=== PATIENT | female | born 1970 | race Caucasian/White ===

== ENCOUNTER 2016-06-16 15:20 | Inpatient (IN) | payer OTHER ==
[~2016-06-16] VITALS: Ht 162.6 cm; Wt 78.6 kg
[~2016-06-16 15:20] MED LIST: AMOXICILLIN500 MG OR; AMOXICILLIN500 MG PO; AZO STANDARD PO; CIPRO500 MG PO; CIPROFLOXACN500 MG PO; DIFLUCAN100 MG PO; FIORICET PO; IMITREX50 M1 PO; LEVSIN/SL0.125 MG PO; METO25TAB PO; METRONIDAZOL500 MG PO; MINIVELLE0.025 MG/2 TD; MINIVELLE0.05 MG; MINIVELLE0.05 MG EX; MOTRIN200 MG PO; NAPROSYN500 MG OR; NEOSPORIN AD; NORCO1 TA1 PO; NORTRIPTYLIN25 MG PO; PAMELOR25 MG PO; PREDNISONE10 MG PO; PYRIDIUM200 MG PO; SYNTHROID PO; TOPROL XL25 M1 PO; TRAMADOL HCL50 MG OR; ULTRAM50 M1 PO
--- NOTE | 2016-06-16 15:30 | NUR ---
DIRECT ADMIT, AMBULATED TO ROOM 278 WITH STEADY GAIT ACCOMPANIED BY FAMILY MEMBER. ORIENTED TO ROOM AND CALL SYSTEM. SAFETY PRECAUTIONS REINFORCED. BED IN LOWEST POSITION WITH WHEELS LOCKED. CALL LIGHT WITHIN REACH. ENCOURAGED PT AND FAMILY MEMBERS TO CALL FOR ANY NEEDS.
[2016-06-16 15:32] VITALS: BP 129/90
--- NOTE | 2016-06-16 15:50 | NUR ---
TO CT SCAN IN STABLE CONDITION VIA WHEELCHAIR ACCOMPANIED BY CRYSTAL ROULETTE DEALER.
[2016-06-16 15:58] LABS: HEMATOCRIT 43.7 % (37.0-47.0); HEMOGLOBIN 14.4 g/dl (12.0-16.0); MEAN CELL VOLUME 91.6 fL CALC (80.0-100.0); MEAN CORPUSCULAR HGB 30.2 pG CALC (26.0-32.0); RED BLOOD COUNT 4.77 mill/uL (4.20-5.60); RED CELL DISTRI WIDTH 12.3 % (11.5-15.5)
--- NOTE | 2016-06-16 16:15 | NUR ---
FROM CT SCAN VIA WHEELCHAIR ACCOMPANIED BY LIZETH PENA. AMBULATED TO BED WITH STEADY GAIT. FAMILY AT BEDSIDE. CALL LIGHT WITHIN REACH.
[2016-06-16 16:26] LABS: ALBUMIN 4.3 g/dL (3.2-5.0); ALKALINE PHOSPHATASE 87 u/l (38-126); ANION GAP 15 (6-22 (CALC)); BILIRUBIN, TOTAL 0.9 mg/dL (0.0-1.4); BUN 8 mg/dL (7-17); BUN/CREATININE RATIO 11 (12-20 (CALC)); CALCIUM 9.4 mg/dL (8.4-10.2); CARBON DIOXIDE 27 mmol/l (22-30); CHLORIDE 101 mmol/l (95-108); CREATININE 0.7 mg/dL (0.5-1.0); GFR > 60 ML/MIN (>=60 (CALC)); GFR FOR AFR.AMER. > 60 ML/MIN (>=60 (CALC)); GLUCOSE 88 mg/dL (65-105); LIPASE 65 u/l (23-300); POTASSIUM 3.9 mmol/l (3.5-5.1); SGOT/AST 21 u/l (14-36); SGPT/ALT 34 u/l (9-52); SODIUM 140 mmol/l (137-146); TOTAL PROTEIN 7.6 g/dL (6.3-8.2)
--- NOTE | 2016-06-16 17:47 | NUR ---
DR HENAO IN TO SEE PT, NEW ORDERS RECEIVED.
--- NOTE | 2016-06-16 18:21 | NUR ---
TO RADIOLOGY IN STABLE CONDITION VIA WHEELCHAIR ACCOMPANIED BY SHERIF PENA.
[2016-06-16 18:45] VITALS: BP 144/90
--- NOTE | 2016-06-16 19:46 | NUR ---
BEDSIDE REPORT RECEIVED FROM KASSANDRA BAR. PT SITTING UP IN CHAIR AT BEDSIDE. DENIES PAIN CURRENTLY. RESPIRATIONS EVEN AND SHALLOW WITH OXYGEN IN PLACE AT 2L. PLAN OF CARE DISCUSSED. PT ENCOURAGED TO VERBALIZE CONCERNS. STATES UNDERSTANDING. ASSESSMENT COMPLETED. IV SITE APPEARS HEALTHY AND FLUSHES. SAFETY MEASURES IN PLACE. CALL LIGHT SYSTEM REVIEWED AND IN REACH.
--- NOTE | 2016-06-16 19:53 | NUR ---
BEDSIDE REPORT RECEIVED FROM KASSANDRA BAR. PT RESTING IN BED WATCHING TV. DENIES PAIN AT THIS TIME. RESPIRATIONS EVEN AND UNLABAORED. PLAN OF CARE DISCUSSED. PT ENCOURAGED TO VERBALIZE CONCERNS. STATES UNDERSTANDING. SAFETY MEASURES IN PLACE. FAMILY AT BEDSIDE. CALL LIGHT SYSTEM REVIEWED AND IN REACH.
[2016-06-16 19:59] LABS: URINE BILIRUBIN - DIPSTICK NEGATIVE (NEGATIVE); URINE BLOOD DIPSTICK NEGATIVE (NEGATIVE); URINE CLARITY CLEAR; URINE COLOR YELLOW; URINE GLUCOSE - DIPSTICK NEGATIVE (NEGATIVE); URINE KETONE NEGATIVE (NEGATIVE); URINE LEUK ESTERASE NEGATIVE (Negative); URINE NITRITE - DIPSTICK NEGATIVE (Negative); URINE PH 5.5 (4.5-8.0); URINE PROTEIN - DIPSTICK NEGATIVE (NEG-TRACE); URINE UROBILINOGEN - DIPSTICK 0.2 E.U./dL (0.2)
[2016-06-16] MEDS ORDERED: METO25TAB PO (22:17)
--- NOTE | 2016-06-17 00:20 | NUR ---
PT ASLEEP AT THIS TIME. NO SIGNS OF PAIN/DISCOMFORT. RESPIRATIONS EVEN AND UNLABORED. FAMILY AT BEDSIDE. SAFETY MEASURES IN PLACE. CALL LIGHT WITHIN REACH.
[2016-06-17 04:05] VITALS: BP 129/78
--- NOTE | 2016-06-17 04:14 | NUR ---
PT ASLEEP AT THIS TIME. NO SIGNS OF PAIN OR DISCOMFORT. RESPIRATIONS EVEN AND UNLABORED. FAMILY REMAINS AT BEDSIDE. ABT INFUSING AND PT TOLERATING WELL. SAFETY MEASURES IN PLACE. CALL LIGHT WITHIN REACH.
[2016-06-17 06:24] LABS: HEMATOCRIT 40.2 % (37.0-47.0); HEMOGLOBIN 13.3 g/dl (12.0-16.0); IMMATURE GRANULOCYTES 0.2 % (0.0-1.0); MEAN CELL VOLUME 91.8 fL CALC (80.0-100.0); MEAN CORPUSCULAR HGB 30.4 pG CALC (26.0-32.0); MEAN CORPUSCULAR HGB CONC 33.1 g/L CALC (32.0-36.0); NEUT# 3.31 thou/uL (2.00-7.15); RED BLOOD COUNT 4.38 mill/uL (4.20-5.60); RED CELL DISTRI WIDTH 12.2 % (11.5-15.5)
[2016-06-17 06:30] LABS: ALBUMIN 3.7 g/dL (3.2-5.0); ALKALINE PHOSPHATASE 64 u/l (38-126); ANION GAP 13 (6-22 (CALC)); BILIRUBIN, TOTAL 1.2 mg/dL (0.0-1.4); BUN 7 mg/dL (7-17); BUN/CREATININE RATIO 11 (12-20 (CALC)); CALCIUM 9.1 mg/dL (8.4-10.2); CARBON DIOXIDE 26 mmol/l (22-30); CHLORIDE 103 mmol/l (95-108); CREATININE 0.7 mg/dL (0.5-1.0); GFR > 60 ML/MIN (>=60 (CALC)); GFR FOR AFR.AMER. > 60 ML/MIN (>=60 (CALC)); GLUCOSE 102 mg/dL (65-105); POTASSIUM 4.1 mmol/l (3.5-5.1); SGOT/AST 21 u/l (14-36); SGPT/ALT 33 u/l (9-52); SODIUM 138 mmol/l (137-146); TOTAL PROTEIN 6.5 g/dL (6.3-8.2)
--- NOTE | 2016-06-17 07:00 | NUR ---
RECEIVED BEDSIDE REPORT FROM LOIVIER MCBRIDE. PT RESTING IN BED WITH EYES CLOSED, AWAKENS EASILY. FAMILY AT BEDSIDE. RESPS EVEN AND UNLABORED ON ROOM AIR. #20 LAC INFUSING WITHOUT DIFFICULTY, SITE APPEARS HEALTHY. DENIES PAIN OR DISCOMFORT. NPO STATUS REINFORCED. PLAN OF CARE DISCUSSED. SAFETY PRECAUTIONS REINFORCED. BED IN LOWEST POSITION WITH WHEELS LOCKED. CALL LIGHT WITHIN REACH. ENCOURAGED PT AND FAMILY TO CALL FOR ANY NEEDS.
[2016-06-17 08:04] VITALS: BP 110/67
--- NOTE | 2016-06-17 10:20 | NUR ---
DR GIRALDO IN TO SEE PT, NEW ORDERS RECEIVED.
--- NOTE | 2016-06-17 12:00 | NUR ---
RESTING IN SEMI FOWLERS. RESPS EVEN AND UNLABORED ON ROOM AIR. #20 LAC INFUSING WITHOUT DIFFICULTY, SITE APPEARS HEALTHY. TOLERATING CLEAR LIQUID DIET WITHOUT C/O PAIN OR NAUSEA. CALL LIGHT WITHIN REACH. WILL CONTINUE TO MONITOR.
[2016-06-17 14:54] VITALS: BP 123/75
--- NOTE | 2016-06-17 16:00 | NUR ---
RESTING IN SUPINE POSITION WATCHING TV. FAMILY AT BEDSIDE. #20 LAC INFUSING WITHOUT DIFFICULTY, SITE APPEARS HEALTHY. DENIES ANY NEEDS AT THIS TIME. CALL LIGHT WITHIN REACH. WILL CONTINUE TO MONITOR.
[2016-06-17 19:45] VITALS: BP 118/78
--- NOTE | 2016-06-17 20:58 | NUR ---
PT. SITTING UP IN BED WITH FAMILY AT BEDSIDE. NO DISTRESS NOTED. DENIES PAIN. ASSESSMENT COMPLETED. PO FLUIDS AND POPCYCLE PROVIDED PER PTS REQUEST. PT. STILL HAS NOT HAD BM. UPDATED WITH POC. ENCOURAGED TO CALL FOR ANY NEEDS. CALL LIGHT IS IN REACH. WILL CONTINUE TO MONITOR.
--- NOTE | 2016-06-17 23:25 | NUR ---
PT. RESTING IN BED WITH EYES OPEN. SON IS IN AT BEDSIDE. PT. DENIES NEEDS. ENCOURAGED TO CALL FOR ANY NEEDS. CALL LIGHT IS IN REACH.
[2016-06-18 03:42] VITALS: BP 102/65
--- NOTE | 2016-06-18 03:44 | NUR ---
PT. RESTING IN BED, DENIES NEEDS/PAIN. PT. STILL HAS NOT HAD A BM FOR COLLECTION. COMMODE EMPTIED. NEW BAG OF ORDERED IVF HUNG. ENCOURAGED TO CALL FOR ANY NEEDS. CALL LIGHT IS IN REACH.
--- NOTE | 2016-06-18 07:00 | NUR ---
RECEIVED BEDSIDE REPORT FROM RILEY CANNON. PT RESTING IN BED EITH EYES CLOSED, AWAKENS EASILY. FAMILY AT BEDSIDE. RESPS EVEN AND UNLABORED ON ROOM AIR. #20 LAC INFUSING WITHOUT DIFFICULTY, SITE APPEARS HEALTHY. DENIES PAIN OR DISCOMFORT. PLAN OF CARE DISCUSSED. SAFETY PRECAUTIONS REINFORCED. BED IN LOWEST POSITION WITH WHEELS LOCKED.CALL LIGHT WITHIN REACH. WILL CONTINUE TO MONITOR.
[2016-06-18 08:56] VITALS: BP 105/67
--- NOTE | 2016-06-18 12:00 | NUR ---
TOLERATING FULL LIQUID DIET WITHOUT NAUSEA OR VOMITING. FAMILY AT BEDSIDE. CALL LIGHT WITHIN REACH.
--- NOTE | 2016-06-18 13:45 | NUR ---
DR GIRALDO IN TO SEE PT, NEW ORDERS RECEIVED.
[2016-06-18 15:05] VITALS: BP 116/86
[2016-06-18] MEDS ORDERED: LOPRESSOR25 MG PO (15:05)
[2016-06-18] MEDS ORDERED: CARAFATE1 GM PO (15:05)
[2016-06-18] MEDS ORDERED: PROTONIX40 M2 PO (15:06)
[2016-06-18] MEDS ORDERED: ZOLOFT50 MG PO (15:15)
--- NOTE | 2016-06-18 16:23 | NUR ---
Discharge instructions given. Patient verbalizes understanding of same. Discharged in stable condition via Wheelchair to Home with family. All belongings sent with pt.
== END 2016-06-18 16:19 | disposition home or self-care (01) | DRG 392 ==
LOC: ENPENDDIS → MS2 15:20
PROVIDERS: ADMIT Internal Medicine Geriatric Medicine; ATTEND Internal Medicine
DX: R10.12 Left upper quadrant pain (principal); F41.9 Anxiety disorder, unspecified; R10.13 Epigastric pain; K58.9 Irritable bowel syndrome, unspecified
CPT/HCPCS: S0164

== ENCOUNTER → 2018-04-22 | Outpatient (REF) | payer OTHER ==
[~2018-04-22] MED LIST changes: +CARAFATE1 GM PO; +LOPRESSOR25 MG PO; +PROTONIX40 M2 PO; +ZOLOFT50 MG PO
== END | disposition home or self-care (01) | DRG 607 ==
LOC: MRI 12:43
PROVIDERS: ATTEND Internal Medicine Geriatric Medicine
DX: D17.24 Benign lipomatous neoplasm of skin and subcutaneous tissue of left leg (principal)

== ENCOUNTER → 2018-04-23 | Outpatient (REF) | payer OTHER | END | disposition home or self-care (01) | DRG 951 | LOC: MAMMO 09:00 | PROVIDERS: ATTEND Internal Medicine Geriatric Medicine | DX: Z12.31 Encounter for screening mammogram for malignant neoplasm of breast (principal); I10 Essential (primary) hypertension ==

== ENCOUNTER 2018-05-24 12:33 | Observation (INO) | payer OTHER ==
[~2018-05-24] VITALS: Ht 162.6 cm; Wt 76.0 kg
[2018-05-24 13:06] VITALS: BP 137/103
--- NOTE | 2018-05-24 13:18 | NUR ---
PT OFF TO CT IN STABLE CONDITION VIA W/C ACCOMPANIED BY FAMILY MEMBER AND A VOLUNTEER;
[2018-05-24 13:23] LABS: HEMOGLOBIN 15.1 g/dl (12.0-16.0); IMMATURE GRANULOCYTES 0.4 % (0.0-5.0); MEAN CELL VOLUME 90.8 fL CALC (80.0-100.0); MEAN CORPUSCULAR HGB 29.6 pG CALC (26.0-32.0); MEAN CORPUSCULAR HGB CONC 32.6 g/L CALC (32.0-36.0); NEUT# 9.56 thou/uL (2.00-7.15); RED BLOOD COUNT 5.1 mill/uL (4.20-5.60); RED CELL DISTRI WIDTH 12.6 % (11.5-15.5)
[2018-05-24 13:26] LABS: HEMATOCRIT 46.3 % (37.0-47.0)
[2018-05-24 13:37] LABS: ANION GAP 17 (6-22 (CALC)); BUN 8 mg/dL (7-17); BUN/CREATININE RATIO 11 (12-20 (CALC)); CARBON DIOXIDE 28 mmol/l (22-30); CHLORIDE 100 mmol/l (95-108); CREATININE 0.7 mg/dL (0.5-1.0); GFR > 60 ML/MIN (>=60 (CALC)); GFR FOR AFR.AMER. > 60 ML/MIN (>=60 (CALC)); POTASSIUM 3.9 mmol/l (3.5-5.1); SODIUM 141 mmol/l (137-146)
--- NOTE | 2018-05-24 14:20 | NUR ---
PT RETURNED TO FLOOR VIA W/C ACCOMPANIED BY A VOLUNTEER IN STABLE CONDITION; BACK TO BED. FAMILY AT BEDSIDE.
[2018-05-24 14:33] VITALS: BP 120/100
[2018-05-24 15:15] VITALS: BP 140/90
[2018-05-24 15:17] LABS: URINE BILIRUBIN - DIPSTICK NEGATIVE (NEGATIVE); URINE BLOOD DIPSTICK TRACE-INTACT (NEGATIVE); URINE COLOR YELLOW; URINE GLUCOSE - DIPSTICK NEGATIVE (NEGATIVE); URINE KETONE 15 mg/dL (NEGATIVE); URINE LEUK ESTERASE NEGATIVE (NEGATIVE); URINE NITRITE - DIPSTICK NEGATIVE (Negative); URINE PH 5.5 (4.5-8.0); URINE PROTEIN - DIPSTICK NEGATIVE (NEG-TRACE); URINE UROBILINOGEN - DIPSTICK 0.2 E.U./dL (0.2)
--- NOTE | 2018-05-24 15:32 | NUR ---
PT ARRIVED TO FLOOR @1250 VIA W/C ACCOMPANIED BY A VOLUNTEER IN STABLE CONDITION; WT AND VITALS OBTAINED BY BROADCAST PRODUCER; AMBULATE WITH STEADY GAIT; RESP EVEN & UNLABORED ON ROOM AIR; A/O X3; C/O ABD TENDERNESS; BM TODAY @ HOME, STATES "IT WAS BLOODY" UA OBTAINED SENT TO LAB; CT STARTED IV #22 RAC; CIPRO INFUSING WITHOUT DIFFICULTY, SITE APPEARS HEALTY; D5-1/2 @ 120CC/HR; SAFETY PRECAUTION REINFORCE; CALL WEBB IN REACH; FAMILY AT BEDSIDE.
--- NOTE | 2018-05-24 15:57 | NUR ---
LAYING IN BED AWAKE VISITING WITH FAMILY MEMBER; IVF INFUSING WITHOUT DIFFICULTY, SITE REMAINS HEALTHY; VOICE NO CONCERNS; CALL WEBB IN REACH.
[2018-05-24] MEDS ORDERED: ATORVASTATIN CA10 MG PO (16:08)
--- NOTE | 2018-05-24 16:51 | NUR ---
DR HENAO AT BEDSIDE TO DISCUSS POC; FLAGYL INFUSING, SITE APPEARS HEALTHY; CALL WEBB IN REACH.
[2018-05-24 18:13] LABS: HEMATOCRIT 44.7 % (37.0-47.0); HEMOGLOBIN 14.5 g/dl (12.0-16.0); IMMATURE GRANULOCYTES 0.3 % (0.0-5.0); MEAN CELL VOLUME 91.6 fL CALC (80.0-100.0); MEAN CORPUSCULAR HGB 29.7 pG CALC (26.0-32.0); MEAN CORPUSCULAR HGB CONC 32.4 g/L CALC (32.0-36.0); NEUT# 8.03 thou/uL (2.00-7.15); RED BLOOD COUNT 4.88 mill/uL (4.20-5.60); RED CELL DISTRI WIDTH 12.7 % (11.5-15.5)
[2018-05-24 18:30] LABS: ANION GAP 16 (6-22 (CALC)); BUN 7 mg/dL (7-17); BUN/CREATININE RATIO 12 (12-20 (CALC)); CARBON DIOXIDE 28 mmol/l (22-30); CHLORIDE 100 mmol/l (95-108); CREATININE 0.6 mg/dL (0.5-1.0); GFR > 60 ML/MIN (>=60 (CALC)); GFR FOR AFR.AMER. > 60 ML/MIN (>=60 (CALC)); POTASSIUM 3.9 mmol/l (3.5-5.1); SODIUM 139 mmol/l (137-146)
--- NOTE | 2018-05-24 19:00 | NUR ---
REPORT RECIVED FROM RAE STANLEY. PT RESTING IN BED ALERT AND ORIENTED FAMILY AT BEDSIDE. PT DENIES ANY NEEDS AT THIS TIME. CALL WEBB WITHIN REACH. WILL CONTINUE TO MONITOR.
[2018-05-24 19:50] VITALS: BP 116/74
--- NOTE | 2018-05-25 01:16 | NUR ---
PT RESTING IN BED WITH EYES CLOSED, EASILY AROUSED, NEW BAG OF FLUIDS HUNG AND INFUSING THROUGH # 22 RAC, APPEARS HEALTHY. SAFETY PRECAUTIONS IN PLACE. WILL CONTINUE TO MONITOR.
[2018-05-25 04:15] VITALS: BP 94/60
--- NOTE | 2018-05-25 06:09 | NUR ---
PT RESTING IN BED, WITH EYES CLOSED, EASILY AROUSED, DENIES ANY NEEDS AT THIS TIME. RESPIRATIONS EVEN AND UNLABORED. SAFETY PRECAUTIONS IN PLACE. WILL CONTINUE TO MONITOR.
--- NOTE | 2018-05-25 07:00 | NUR ---
PT REPORT RECIEVED FROM KASSANDRA RICHARDS. PT RESTING. NO S/S OF DISTRESS. CALL LIGHT IN REACH. WILL CONTINUE TO MONITOR.
[2018-05-25 07:43] VITALS: BP 90/62
[2018-05-25 08:47] LABS: ANION GAP 14 (6-22 (CALC)); BUN 6 mg/dL (7-17); BUN/CREATININE RATIO 10 (12-20 (CALC)); CARBON DIOXIDE 28 mmol/l (22-30); CHLORIDE 101 mmol/l (95-108); CREATININE 0.6 mg/dL (0.5-1.0); GFR > 60 ML/MIN (>=60 (CALC)); GFR FOR AFR.AMER. > 60 ML/MIN (>=60 (CALC)); POTASSIUM 3.8 mmol/l (3.5-5.1); SODIUM 139 mmol/l (137-146)
[2018-05-25 10:56] LABS: HEMATOCRIT 41.4 % (37.0-47.0); HEMOGLOBIN 13.2 g/dl (12.0-16.0); IMMATURE GRANULOCYTES 0.4 % (0.0-5.0); MEAN CELL VOLUME 93.2 fL CALC (80.0-100.0); MEAN CORPUSCULAR HGB 29.7 pG CALC (26.0-32.0); MEAN CORPUSCULAR HGB CONC 31.9 g/L CALC (32.0-36.0); RED BLOOD COUNT 4.44 mill/uL (4.20-5.60); RED CELL DISTRI WIDTH 12.9 % (11.5-15.5)
--- NOTE | 2018-05-25 12:38 | NUR ---
PT RESTING IN BED. NO C/O PAIN OR NEEDS. CALL LIGHT IN REACH. WILL CONTINUE TO MONITOR.
[2018-05-25 14:45] VITALS: BP 109/64
--- NOTE | 2018-05-25 16:20 | NUR ---
PT LYING IN BED. NO C/O PAIN OR NEEDS. CALL LIGHT IN REACH. WILL CONTINUE TO MONITOR.
[2018-05-25 19:00] VITALS: BP 102/70
--- NOTE | 2018-05-25 19:20 | NUR ---
REPORT RECEIVED FROM RAE ROWAN. PT RESTING IN RECLINER AT BEDSIDE. ALERT AND ORIENTED. DISCUSSED BP AND PULSE WITH PT, EDUCATED PT ON LOPRESSOR DOSE AND SCHEDULE, PT ASKING TO TAKE HALF DOSE DUE TO THAT IS WHAT SHE NORMALLY TAKES AT HOME. DR. HENAO TO BE CALLED AND MADE AWARE PT REQUEST WELL PT VS.
--- NOTE | 2018-05-25 20:30 | NUR ---
DR. HENAO MADE AWARE OF PT REQUEST AND PT VS, NEW ORDERS GIVEN TO HOLD LOPRESSOR FOR TONIGHT.
--- NOTE | 2018-05-25 23:43 | NUR ---
PT RESTING IN BED WITH EYES CLOSED. RESPIRATIONS EVEN AND UNLABORED ON RA. CALL WEBB WITHIN REACH. SAFETY PRCAUTIONS IN PLACE.
[2018-05-26 00:27] VITALS: BP 97/60
[2018-05-26 04:12] VITALS: BP 103/60
[2018-05-26 06:56] LABS: HEMATOCRIT 38.5 % (37.0-47.0); HEMOGLOBIN 12.3 g/dl (12.0-16.0); IMMATURE GRANULOCYTES 0.3 % (0.0-5.0); MEAN CORPUSCULAR HGB 29.7 pG CALC (26.0-32.0); MEAN CORPUSCULAR HGB CONC 31.9 g/L CALC (32.0-36.0); NEUT# 4.29 thou/uL (2.00-7.15); RED BLOOD COUNT 4.14 mill/uL (4.20-5.60); RED CELL DISTRI WIDTH 12.6 % (11.5-15.5)
[2018-05-26 06:59] LABS: ANION GAP 12 (6-22 (CALC)); BUN 4 mg/dL (7-17); BUN/CREATININE RATIO 7 (12-20 (CALC)); CARBON DIOXIDE 27 mmol/l (22-30); CHLORIDE 105 mmol/l (95-108); CREATININE 0.6 mg/dL (0.5-1.0); GFR > 60 ML/MIN (>=60 (CALC)); GFR FOR AFR.AMER. > 60 ML/MIN (>=60 (CALC)); POTASSIUM 3.8 mmol/l (3.5-5.1); SODIUM 140 mmol/l (137-146)
[2018-05-26 07:52] VITALS: BP 97/56
--- NOTE | 2018-05-26 07:52 | NUR ---
TO BEDSIDE TO DISCUSS POC, ORDERS TO DECREASE IVF. DIET TO BE INCREASED. CALLED KITCHEN TO BRING A BREAKFAST TRAY, VSS, ASSESSMENT COMPLETED. CALL LIGHT IN REACH,CONTINUE TO MONITOR.
--- NOTE | 2018-05-26 10:00 | NUR ---
PT TOLERATED BREAKFAST, NO SIGNS OF DISTRESS NOTED, PT AMBULATING IN ROOM, SITTING IN RECLINER AT BEDSIDE. STATES SHE WILL STAY OUT OF BED TODAY PER DR ORDERS. VOICES NO NEEDS OR COMPLAINTS CALL LIGHT IN REACH,CONTINUE TO MONITOR.
--- NOTE | 2018-05-26 14:00 | NUR ---
MARCELO ALTAMIRANO, PT GIVEN ICE. VOICES NO NEEDS OR COMPLAINST AT THIS TIME. CALL LIGHT IN REACH,CONTINUE TO MONITOR.
[2018-05-26 15:10] VITALS: BP 105/71
[2018-05-26 19:00] VITALS: BP 128/68
--- NOTE | 2018-05-26 19:00 | NUR ---
RECEIVED REPORT FROM NURSE GRAVES, PATIENT, RESTING IN BED, NO DISCOMFORT NOTED AT THIS TIME, FAMILY IN ROOM CALL LIGHT IN REACH
--- NOTE | 2018-05-26 20:00 | NUR ---
PATIENT IN RESTING IN BED, ALERT AND ORIENTED, DENIES PAIN OR DISCOMFORT AT THIS TIME, WITH AN ONGOING IV OF D51/2 NACL@75 CC HR, INFUSING WELL ON RAC,NOTED TO HAVE TRACE OF EDEMA ON BILATERAL ANKLES, CALL LIGHT WITHIN REACH.
--- NOTE | 2018-05-27 | NUR ---
PATIENT APPEARS TO BE SLEEPING WITH EYES CLOSED NO DISCOMFORTS NOTED AT THIS TIME, CALL LIGHT WITHIN REACH.
--- NOTE | 2018-05-27 04:00 | NUR ---
PATIENT APPEARS TO BE SLEEPING WITH EYES CLOSEED, NO DISCOMFORTS NOTED AT THIS TIME, CALL LIGHT WITHIN REACH.
[2018-05-27 04:14] VITALS: BP 99/62
[2018-05-27 05:31] LABS: HEMATOCRIT 37.1 % (37.0-47.0); HEMOGLOBIN 11.9 g/dl (12.0-16.0); IMMATURE GRANULOCYTES 0.3 % (0.0-5.0); MEAN CELL VOLUME 93.5 fL CALC (80.0-100.0); MEAN CORPUSCULAR HGB CONC 32.1 g/L CALC (32.0-36.0); NEUT# 3.84 thou/uL (2.00-7.15); RED BLOOD COUNT 3.97 mill/uL (4.20-5.60); RED CELL DISTRI WIDTH 12.6 % (11.5-15.5)
[2018-05-27 05:59] LABS: ALBUMIN 3.3 g/dL (3.2-5.0); ALKALINE PHOSPHATASE 57 u/l (38-126); ANION GAP 11 (6-22 (CALC)); BILIRUBIN, TOTAL 0.6 mg/dL (0.0-1.4); BUN 5 mg/dL (7-17); BUN/CREATININE RATIO 9 (12-20 (CALC)); CARBON DIOXIDE 27 mmol/l (22-30); CHLORIDE 106 mmol/l (95-108); CREATININE 0.6 mg/dL (0.5-1.0); GFR > 60 ML/MIN (>=60 (CALC)); GFR FOR AFR.AMER. > 60 ML/MIN (>=60 (CALC)); POTASSIUM 4.1 mmol/l (3.5-5.1); SGOT/AST 21 u/l (14-36); SODIUM 140 mmol/l (137-146); TOTAL PROTEIN 5.6 g/dL (6.3-8.2)
--- NOTE | 2018-05-27 07:36 | NUR ---
REPORT RECEIVED FROM PRINT PRODUCER, PT SITTING UP IN BED A/O, VOICE NO CONCERNS;
[2018-05-27 07:46] VITALS: BP 116/77
--- NOTE | 2018-05-27 07:49 | NUR ---
ASSESSMENT COMPLETED; SITTING UP IN BED, WATCHING TV; IVF D5-1/2 @75CC/HR; SITE APPEARS HEALTHY; WANTS TO KNOW WHEN CT WILL BE DONE; WANTS TO GO HOME; C/O OF NO PAIN; NO BM YET, OFFER PRUINE JUICE; CALL WEBB IN REACH.
--- NOTE | 2018-05-27 12:39 | NUR ---
PT SITTING UP IN BED, NO BM YET BUT FEELS LIKE IT WILL HAPPEN SOON; RESP EVEN AND UNLABORED; VOICE NO CONCERNS; NO S/S OF DISTRESS NOTED.
[2018-05-27 16:00] VITALS: BP 131/85
--- NOTE | 2018-05-27 16:06 | NUR ---
PT SITTING UP IN CHAIR, CIPRO INFUSING WITHOUT DIFFICULTY; NO BM YET, ACTIVE BS; RESP EVEN AND UNLABORED ON ROOM AIR. CALL WEBB IN REACH. WILL CONTINUE TO MONITOR.
--- NOTE | 2018-05-27 16:23 | NUR ---
IV INFLITRATE, REMOVE, CATH INTACT, MINIMAL REDNESS NOTED; PT REFUSE NEW IV START; STATES SHE MAY BE GOING HOME;
--- NOTE | 2018-05-27 17:33 | NUR ---
DR HENAO AT BEDSIDE TO DISCUSS POC
[2018-05-27] MEDS ORDERED: METRONIDAZOL500 MG PO (17:43)
[2018-05-27] MEDS ORDERED: BENTYL10 MG PO (17:43)
--- NOTE | 2018-05-27 18:09 | NUR ---
Discharge instructions given. Patient verbalizes understanding of same. Discharged in stable condition via Ambulatory to Home with family. All belongings sent with pt.
--- NOTE | 2018-05-27 18:09 | NUR ---
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
== END 2018-05-27 18:09 | disposition home or self-care (01) | DRG 387 ==
LOC: MS2 12:33
PROVIDERS: ADMIT Internal Medicine Geriatric Medicine; ATTEND Internal Medicine Geriatric Medicine
DX: K50.111 Crohn's disease of large intestine with rectal bleeding (principal); I10 Essential (primary) hypertension
CPT/HCPCS: G0378; G0379; Q9967

== ENCOUNTER 2020-05-15 18:23 | Emergency (ER) | payer OTHER ==
[~2020-05-15] VITALS: Ht 162.6 cm; Wt 78.0 kg
[~2020-05-15 18:23] MED LIST changes: +ATORVASTATIN CA10 MG PO; +BENTYL10 MG PO
[2020-05-15 19:27] LABS: IMMATURE GRANULOCYTES 0.2 % (0.0-5.0); MEAN CELL VOLUME 92.8 fL CALC (80.0-100.0); MEAN CORPUSCULAR HGB 30.4 pG CALC (26.0-32.0); MEAN CORPUSCULAR HGB CONC 32.7 g/dL CAL (32.0-36.0); NEUT# 5.16 thou/uL (2.00-7.15); RED BLOOD COUNT 4.74 mill/uL (4.20-5.60); RED CELL DISTRI WIDTH 12.1 % (11.5-15.5)
[2020-05-15 19:30] LABS: HEMOGLOBIN 14.4 g/dl (12.0-16.0)
[2020-05-15 19:36] LABS: ALBUMIN 4.8 g/dL (3.2-5.0); ALKALINE PHOSPHATASE 86 u/l (38-126); ANION GAP 12 (6-22 (CALC)); BILIRUBIN, TOTAL 1.2 mg/dL (0.0-1.4); BUN 12 mg/dL (7-17); BUN/CREATININE RATIO 16 (12-20 (CALC)); CARBON DIOXIDE 31 mmol/l (22-30); CHLORIDE 98 mmol/l (95-108); CREATININE 0.7 mg/dL (0.5-1.0); GFR > 60 ML/MIN (>=60 (CALC)); GFR FOR AFR.AMER. > 60 ML/MIN (>=60 (CALC)); POTASSIUM 4.1 mmol/l (3.5-5.1); SGOT/AST 24 u/l (14-36); SODIUM 137 mmol/l (137-146); TOTAL PROTEIN 8.1 g/dL (6.3-8.2)
[2020-05-15] MEDS ORDERED: TOPROL XL50 MG PO (20:13)
[2020-05-15 20:32] VITALS: BP 137/82
== END 2020-05-15 20:44 | disposition home or self-care (01) | DRG 305 ==
LOC: ED 18:23
PROVIDERS: Family Medicine
DX: I10 Essential (primary) hypertension (principal)

== ENCOUNTER 2021-08-15 15:29 | Emergency (ER) | payer OTHER ==
[~2021-08-15] VITALS: Ht 162.6 cm; Wt 79.0 kg
[~2021-08-15 15:29] MED LIST changes: +TOPROL XL50 MG PO
[2021-08-15 16:05] LABS: URINE BILIRUBIN - DIPSTICK NEGATIVE (NEGATIVE); URINE BLOOD DIPSTICK NEGATIVE (NEGATIVE); URINE COLOR YELLOW; URINE GLUCOSE - DIPSTICK NEGATIVE (NEGATIVE); URINE KETONE NEGATIVE (NEGATIVE); URINE LEUK ESTERASE NEGATIVE (NEGATIVE); URINE NITRITE - DIPSTICK NEGATIVE (Negative); URINE PH 5.5 (4.5-8.0); URINE PROTEIN - DIPSTICK NEGATIVE (NEG-TRACE); URINE SPECIFIC GRAVITY >=1.030; URINE UROBILINOGEN - DIPSTICK 0.2 E.U./dL (0.2)
[2021-08-15 16:06] LABS: HEMATOCRIT 45.1 % (37.0-47.0); HEMOGLOBIN 14.3 g/dl (12.0-16.0); IMMATURE GRANULOCYTES 0.1 % (0.0-5.0); MEAN CELL VOLUME 94.7 fL CALC (80.0-100.0); MEAN CORPUSCULAR HGB CONC 31.7 g/dL CAL (32.0-36.0); NEUT# 4.86 thou/uL (2.00-7.15); RED BLOOD COUNT 4.76 mill/uL (4.20-5.60); RED CELL DISTRI WIDTH 12.2 % (11.5-15.5)
[2021-08-15 16:20] LABS: ALBUMIN 4.5 g/dL (3.2-5.0); ALKALINE PHOSPHATASE 80 u/l (38-126); ANION GAP 13 (6-22 (CALC)); BUN 12 mg/dL (7-17); BUN/CREATININE RATIO 15 (12-20 (CALC)); CARBON DIOXIDE 25 mmol/l (22-30); CHLORIDE 104 mmol/l (95-108); CREATININE 0.8 mg/dL (0.5-1.0); GFR FOR AFR.AMER. > 60 ML/MIN (>=60 (CALC)); GFR OTHER RACES > 60 ML/MIN (>=60 (CALC)); LIPASE 296 u/l (23-300); POTASSIUM 3.9 mmol/l (3.5-5.1); SGOT/AST 23 u/l (14-36); SODIUM 138 mmol/l (137-146); TOTAL PROTEIN 7.8 g/dL (6.3-8.2)
[2021-08-15 19:05] VITALS: BP 138/101
== END 2021-08-15 19:05 | disposition home or self-care (01) | DRG 392 ==
LOC: ED 15:29
PROVIDERS: Family Medicine
DX: R10.31 Right lower quadrant pain (principal); I10 Essential (primary) hypertension
CPT/HCPCS: Q9967